=== PATIENT | female | born 1990 | race Caucasian/White ===

== ENCOUNTER 2019-05-24 17:58 | Emergency (ER) | payer OTHER ==
[~2019-05-24] VITALS: Ht 157.5 cm; Wt 86.4 kg
[2019-05-24 20:43] VITALS: BP 121/73
== END 2019-05-24 21:05 | disposition home or self-care (01) ==
LOC: EMS 17:59
DX: S09.92XA Unspecified injury of nose, initial encounter (principal); F17.210 Nicotine dependence, cigarettes, uncomplicated; Y04.0XXA Assault by unarmed brawl or fight, initial encounter; Y93.89 Activity, other specified; Y92.89 Other specified places as the place of occurrence of the external cause; Y99.8 Other external cause status
CPT/HCPCS: 70486

== ENCOUNTER 2019-09-02 17:39 | Emergency (ER) | payer OTHER ==
[~2019-09-02] VITALS: Ht 167.6 cm; Wt 74.5 kg
[2019-09-02 19:55] VITALS: BP 118/67
== END 2019-09-02 20:05 | disposition home or self-care (01) ==
LOC: EMS 17:39
DX: M79.622 Pain in left upper arm (principal); M79.672 Pain in left foot; F17.210 Nicotine dependence, cigarettes, uncomplicated; F41.9 Anxiety disorder, unspecified
CPT/HCPCS: 99406